=== PATIENT | male | born 2005 | race Hispanic/Latino ===

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

== ENCOUNTER 2024-05-19 18:26 | Emergency (ER) | payer SELFPAY ==
--- OUTSIDE RECORDS SUMMARY | 2024-05-19 18:28 | XMS REPORT | Continuity of Care Document ---
Author Name Unknown Address [address] [place] [address] [facility] thconnect Address [address] [place] [address] Care Team Providers Care Group Therapist Name Role Phone FOUND, PCP NOT Primary Care Physician Unavailab PADMA Medrano Attending Clinician Unavailable Sue Wharton Attending Clinician [phone] Lab, Adc Fam Pob I Attending Clinician Unavailab Yolis Aranda Attending Clinician [phone] CYNTHIA ALBARADO Attending Clinician Unavailable Benny SUMMERS Admitting Clinician Unavailable Payers Payer Name Policy Type Policy Number Effective Date Expirati on Date Source [facility] MEDICAID [id number] 2016 00:00:00 2019 00:00:00 Problems Condition Name Condition Details Condition Category Status Onset Date Resolution Date Last Treatment Date Treating Clinician Comments Source No known active problems No known active problems Disease [facility] Allergies, Adverse Reactions, Alerts Allergy Name Allergy Type Status Severity Reaction(s) Onset Date Inactive Date Treating Clinician Comments Source NO KNOWN ALLERGIE S Drug Class Active [facility] Social History Social Habit Start Date Stop Date Quantity Comments Source Sex Assigned At [facility] Exposure to SARS-CoV-2 (event) Yes [facility] Smoking Status Start Date Stop Date Source Unknown if ever smoked [facility] Medications Ordered Medication Name Filled Medication Name Start Date Stop Date Current Medication? Ordering Clinician Indication Dosage Frequency Signature (SIG) Comments Components Source ondansetron 4 mg disintegrat ing tablet 2018-07 00:00: 00 Yes [id number] 4mg Take 1 tablet by mouth every 4 (four) hours as needed for Nausea and Vomiting (N/V). [facility] ondansetron (ZOFRAN, HYDROCHLORI DE,) 4 mg tablet 10-29 00:00: 00 Yes 4mg Take 1 tablet by mouth every 12 (twelve) hours as needed for Nausea and Vomiting (N/V). [facility] Encounters Start Date/Time End Date/Time Encounter Type Admission Type Attending [facility] Emergency [facility] Facility Care Department Encounter ID Source 2023-04-15 13:03:00 2023-04-15 13:46:00 Emergency ER PADMA GAYTAN [facility] [id number] [facility] 2022-10-29 11:15:48 2022-10-29 11:15:48 Outpatient [facility] [id number] Vaughn Abbasi 2022-08-25 14:54:22 2022-08-25 14:54:22 Outpatient [facility] [id number] Vaughn Abbasi 2022-04-19 14:47:02 2022-04-19 14:47:02 Outpatient [facility] [id number] Vaughn Abbasi 2020-02-02 00:00:00 2020-02-02 00:00:00 Telephone Sue Arredondo [facility] [id number] 2020-02-02 00:00:00 2020-02-02 00:00:00 Telephone Sue Arredondo [facility] [address] [id number] [facility] 2020-02-01 17:40:00 2020-02-01 17:40:00 Outpatient R [facility] [id number] [facility] 2020-02-01 16:54:48 2020-02-01 17:14:48 Laboratory Only Lab, [facility] [address] [id number] 2020-02-01 16:54:48 2020-02-01 17:14:48 Laboratory Only Lab, [facility] I Yolis Munoz [facility] [address] [id number] [facility] 2020-02-01 10:20:00 2020-02-01 10:20:00 Outpatient R [facility] [id number] [facility] 2019-06-15 20:07:04 2019-06-16 02:22:00 Emergency X CYNTHIA ALBARADO [facility] ERT [id number] [facility]
[2024-05-19] MEDS ORDERED: AMOX/K CLAV 875 MG TAB ONE (19:07)
--- NOTE | 2024-05-19 19:14 | EDPHYS ---
Physician Documentation [facility] Name: Alex Hickey Age: 18 yrs Sex: Male : 2005 Arrival Date: 05/19/2024 Time: 18:26 Bed 12 Private MD: ED Physician Emre Esquivel HPI: 05/19 18:46 This 18 yrs old Male presents to ER via Ambulatory with complaints of Flu rn Symptoms, Infected Toe. 18:46 The patient or guardian reports flu symptoms, low-grade fever, myalgias, no appetite. rn Onset: The symptoms/episode began/occurred yesterday. Severity of symptoms: At their worst the symptoms were mild, in the emergency department the symptoms are unchanged. Modifying factors: The symptoms are alleviated by nothing, the symptoms are aggravated by nothing. The patient has not experienced similar symptoms in the past. Patient reports here for 2 reasons. Reports flulike illness with sinus congestion and pressure with nasal congestion and sore throat. Also here because right great toenail is starting to get inflamed. No purulence. Mild redness. Feels like it is ingrown toenail.. Historical: - Allergies: 18:43 unknown antibiotic; jb4 - PMHx: 18:43 ADD/ADHD; jb4 - PSHx: 18:43 None; jb4 - Immunization history:: Client reports receiving the 2nd dose of the Covid vaccine. - Infectious Disease History:: Denies. - Social history:: Smoking status: Patient denies any tobacco usage or history of. Patient/guardian denies using alcohol. - Family history:: not pertinent. - Hospitalizations: : No recent hospitalization is reported. ROS: 18:46 Constitutional: Positive for fever and chills ENT: Positive for sinus pressure and rn nasal congestion Cardiovascular: Negative for chest pain, palpitations, and edema, Respiratory: Negative for shortness of breath, cough, wheezing, and pleuritic chest pain, Abdomen/GI: Negative for abdominal pain, nausea, vomiting, diarrhea, and constipation, MS/Extremity: Positive for right great toenail ingrown nail Exam: 18:46 Constitutional: This is a well developed, well nourished patient who is awake, alert, rn and in no acute distress. Head/Face: Normocephalic, atraumatic. ENT: Clear nasal drainage, mild pharyngeal erythema, no exudate or stridor. Neck: Nontender cervical lymphadenopathy. No meningismus MS/ Extremity: Right great toenail with mild ingrown nail, no fluctuance or purulence noted Vital Signs: 18:40 Temp 98.8(O); jb4 18:40 BP 135 / 86; Pulse 94; Resp 19; Pulse Ox 100% on R/A; MAP 99 mmHg; Pain 7/10; jb4 18:45 Weight 83.91 kg; Height 6 ft. 1 in. ; jb4 18:45 Body Mass Index 24.41 (83.91 kg, 185.42 cm) - Percentile 69.1 % jb4 18:40 Pain Scale: Adult jb4 MDM: 18:39 Medical Screening Exam initiated rn 18:46 Differential Diagnosis: Upper Respiratory Infection Sinusitis Pharyngitis Other Ingrown rn nail. Data reviewed: vital signs, nurses notes, and as a result, I will discharge patient. Counseling: I had a detailed discussion with the patient and/or guardian regarding the historical points, exam findings, and any diagnostic results supporting the discharge/admit diagnosis, the need for outpatient follow up, to return to the emergency department if symptoms worsen or persist or if there are any questions or concerns that arise at home. Special discussion: I discussed with the patient/guardian in detail that at this point there is no indication for admission to the hospital. It is understood, however, that if the symptoms persist or worsen the patient needs to return immediately for re-evaluation. ED course: Will place patient on Augmentin for sinus infection as well as ingrown nail. Recommend soaking toe and working out at, also recommend cutting his nails longer to keep this from happening in the future.. Administered Medications: 19:08 Drug: Amoxicillin-Clavulanate PO 875 mg PO once Route: PO; me1 19:25 Follow up: Response: No adverse reaction me1 Disposition Summary: 05/19/24 19:14 Discharge Ordered Notes: Location: Home rn Problem: new rn Symptoms: are unchanged rn Condition: Stable rn Diagnosis - Acute sinusitis, unspecified rn - Ingrowing nail rn Followup: rn - With: Private Physician - When: As needed - Reason: Recheck today's complaints, Re-evaluation by your physician Discharge Instructions: - Ingrown Toenail rn - Sinusitis, Adult rn - Discharge Summary Sheet jb4 Forms: - Medication Reconciliation Form rn - 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
--- NOTE | 2024-05-19 19:14 | ER ---
Nurse's Notes [facility] Name: Alex Hickey Age: 18 yrs Sex: Male : 2005 Arrival Date: 05/19/2024 Time: 18:26 Bed 12 Private MD: Diagnosis: Acute sinusitis, unspecified;Ingrowing nail Presentation: 05/19 18:40 Chief complaint: Patient states: yesterday I woke up with a headache, I threw up 3 jb4 times, my nose is stopped up, and I am sneezing. Also my right big toe might be ingrown too -- RN observes purulent drainage. Coronavirus screen: Client denies travel out of the [place] in the last 14 days. Ebola Screen: Patient negative for fever greater than or equal to 101.5 degrees Fahrenheit, and additional compatible Ebola Virus Disease symptoms Patient denies exposure to infectious person. Patient denies travel to an Ebola-affected area in the 21 days before illness onset. No symptoms or risks identified at this time. Initial Sepsis Screen: Does the patient meet any 2 criteria? HR > 90 bpm. Does the patient have a suspected source of infection? No. Patient's initial sepsis screen is negative. Risk Assessment: Do you want to hurt yourself or someone else? Patient reports no desire to harm self or others. Onset of symptoms was May 19, 2024. 18:40 Method Of Arrival: Ambulatory jb4 18:40 Acuity: PARAG 4 jb4 Triage Assessment: 18:40 General: Appears in no apparent distress. uncomfortable, Behavior is calm, cooperative. jb4 Pain: Complains of pain in Right first toenail Pain currently is 6 out of 10 on a pain scale. EENT: Reports nasal congestion nasal discharge. Neuro: Level of Consciousness is awake, alert, obeys commands, Oriented to person, place, time, situation, Reports headache since this morning. Cardiovascular: Patient's skin is warm and dry. Respiratory: Airway is patent Respiratory effort is even, unlabored, Respiratory pattern is regular, symmetrical. GI: Abdomen is flat, non-distended, Reports nausea, vomiting, since this morning. : No signs and/or symptoms were reported regarding the genitourinary system. Derm: No signs and/or symptoms reported regarding the dermatologic system. Musculoskeletal: No signs and/or symptoms reported regarding the musculoskeletal system. Historical: - Allergies: 18:43 unknown antibiotic; jb4 - PMHx: 18:43 ADD/ADHD; jb4 - PSHx: 18:43 None; jb4 - Immunization history:: Client reports receiving the 2nd dose of the Covid vaccine. - Infectious Disease History:: Denies. - Social history:: Smoking status: Patient denies any tobacco usage or history of. Patient/guardian denies using alcohol. - Family history:: not pertinent. - Hospitalizations: : No recent hospitalization is reported. Screenin:[address] [facility] ED Fall Risk Assessment (Adult) History of falling in the last 3 months, me1 including since admission No falls in past 3 months (0 pts) Confusion or Disorientation No (0 pts) Intoxicated or Sedated No (0 pts) Impaired Gait No (0 pts) Mobility Assist Device Used No (0 pt) Altered Elimination No (0 pt) Score/Fall Risk Level 0 - 2 = Low Risk Maintained a safe environment, Provided non-skid footwear, Hourly rounding (assess needs \T\ fall precautionary measures) done. Abuse screen: Denies threats or abuse. Nutritional screening: No deficits noted. Tuberculosis screening: No symptoms or risk factors identified. Assessment: 19:13 General: Appears comfortable, well groomed, well developed, well nourished, Behavior is me1 calm, cooperative, appropriate for age, Reports c/o headache, n/v, nasal congestion and drainage from R great toenail. Pain: Complains of pain in Right first toenail Pain does not radiate. Pain currently is 3 out of 10 on a pain scale. Quality of pain is described as tender, Pain began gradually, Is continuous. Neuro: Level of Consciousness is awake, alert, obeys commands, Oriented to person, place, time, situation, Appropriate for age. Neuro: Reports headache. Cardiovascular: Patient's skin is warm and dry. Respiratory: Airway is patent Respiratory effort is even, unlabored, Respiratory pattern is regular, symmetrical. GI: Reports nausea, vomiting. : No signs and/or symptoms were reported regarding the genitourinary system. EENT: No signs and/or symptoms were reported regarding the EENT system. EENT: Reports nasal congestion. Derm: Wound noted Right first toenail Wound is red, swollen w/purulent drainage to right great toenail. Musculoskeletal: No signs and/or symptoms reported regarding the musculoskeletal system. Vital Signs: 18:40 Temp 98.8(O); jb4 18:40 BP 135 / 86; Pulse 94; Resp 19; Pulse Ox 100% on R/A; MAP 99 mmHg; Pain 7/10; jb4 18:45 Weight 83.91 kg; Height 6 ft. 1 in. ; jb4 18:45 Body Mass Index 24.41 (83.91 kg, 185.42 cm) - Percentile 69.1 % jb4 18:40 Pain Scale: Adult 4 ED Course: 18:29 Patient arrived in ED. mr 18:39 Emre Esquivel MD is Attending Physician. rn 18:40 Arm band placed on left wrist. 4 18:42 Triage completed. 4 19:05 Aniya Boyd, RN is Primary Nurse. me1 19:13 Patient has correct armband on for positive identification. Bed in low position. Call me1 light in reach. Side rails up X 1. Provided Education on: POC. Verbalized understanding.. 19:13 No provider procedures requiring assistance completed. Patient did not have IV access me1 during this emergency room visit. Administered Medications: 19:08 Drug: Amoxicillin-Clavulanate PO 875 mg PO once Route: PO; me1 19:25 Follow up: Response: No adverse reaction me1 Medication: 19:13 VIS not applicable for this client. me1 Outcome: 19:14 Discharge ordered by . rn 19:25 Discharged to home ambulatory, me1 19:25 Condition: stable 19:25 Discharge instructions given to patient, Instructed on discharge instructions, follow up and referral plans. medication usage, Demonstrated understanding of instructions, follow-up care, medications, Prescriptions given X 1, 19:25 Patient left the ED. me1 Signatures: Nisha Nicole, Reg Reg mr Emre Esquivel MD MD rn Bryson, James, RN RN [facility] Aniya Boyd, ESCOBAR RN me1 Corrections: (The following items were deleted from the chart) 19:13 18:40 Chief complaint: Patient states: yesterday I woke up with a headache, I threw up me1 3 times, my nose is stopped up, and I am sneezing. Also my right big toe might be ingrown too -- RN observes purulent drainage jb4
[2024-05-19 19:36] VITALS: BP 135/86; TEMP 98.8; O2SAT 100
== END 2024-05-19 19:25 | disposition home or self-care (01) ==
LOC: ER 18:26
DX: J01.90 Acute sinusitis, unspecified (principal); L60.0 Ingrowing nail; Z11.52 Encounter for screening for COVID-19
CPT/HCPCS: 99283